=== PATIENT | female | born 1995 | race Caucasian/White ===

== ENCOUNTER 2020-09-26 17:34 | Emergency (ER) | payer SELFPAY ==
[~2020-09-26] VITALS: Ht 165.1 cm; Wt 54.5 kg
[2020-09-26] MEDS ORDERED: dexamethasone sod phosphate 10mg/ml inj PO STA (17:47)
== END 2020-09-26 18:45 | disposition home or self-care (01) ==
LOC: ER 17:35
DX: U07.1 COVID-19 (principal); Z88.2 Allergy status to sulfonamides
CPT/HCPCS: 87081; 87880; 99283; J1100